=== PATIENT | female | born 1980 | race American Indian/Alaskan Native ===

== ENCOUNTER 2017-05-07 18:16 | Outpatient (CLI) | payer OTHER, MEDICAID ==
[2017-05-07] MEDS ORDERED: BOOSTRIX IM ONE (19:17)
[2017-05-07] MEDS ORDERED: TYLENOL PO ONE (19:17)
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
[2017-05-07] MEDS ORDERED: XYLOCAINE 2% INFILTRATI ONE ×2 (20:42→20:43)
[2017-05-07] MEDS ORDERED: ALDOMET PO ONE (23:03)
[2017-05-07 23:24] VITALS: BP 124/70
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
== END 2017-05-08 00:08 | disposition home or self-care (01) ==
LOC: ED 18:16 → TRG 18:16 → ED 21:46 → TRG 21:46 → EDSTATUS 21:50 → LD 21:51 → TRG 05-08 00:08
PROVIDERS: ATTEND Obstetrics & Gynecology
DX: O09.522 Supervision of elderly multigravida, second trimester (principal); O26.892 Other specified pregnancy related conditions, second trimester; S00.03XA Contusion of scalp, initial encounter; M54.2 Cervicalgia; V89.2XXA Person injured in unspecified motor-vehicle accident, traffic, initial encounter; O32.1XX0 Maternal care for breech presentation, not applicable or unspecified; O10.912 Unspecified pre-existing hypertension complicating pregnancy, second trimester; Z3A.20 20 weeks gestation of pregnancy; Y93.89 Activity, other specified; Y92.89 Other specified places as the place of occurrence of the external cause; Y99.8 Other external cause status
CPT/HCPCS: 59025; 70450; 70486; 72125; 76805; 86850; 86900; 86901; 90715